=== PATIENT | female | born 1935 | race American Indian/Alaskan Native ===

== ENCOUNTER 2016-08-02 11:08 | Day surgery (SDC) | payer MEDICARE ==
[~2016-08-02 11:08] MED LIST: IOPIDINE OD ONE; MYDRIACYL 1% OD ONE; NEOFRIN OD ONE
[2016-08-02] MEDS ORDERED: IOPIDINE OD ONE (12:00)
[2016-08-02] MEDS ORDERED: NEOFRIN OD ONE (12:00)
[2016-08-02] MEDS ORDERED: MYDRIACYL 1% OD ONE (12:00)
[2016-08-02 12:44] VITALS: BP 120/70
== END 2016-08-02 11:09 | disposition home or self-care (01) ==
LOC: OR 11:08
PROVIDERS: ATTEND Specialist
DX: E11.36 Type 2 diabetes mellitus with diabetic cataract (principal); H40.9 Unspecified glaucoma; I11.0 Hypertensive heart disease with heart failure; I50.9 Heart failure, unspecified; E78.00 Pure hypercholesterolemia, unspecified; Z87.891 Personal history of nicotine dependence; Z95.1 Presence of aortocoronary bypass graft
CPT/HCPCS: 82962

== ENCOUNTER 2017-11-14 09:11 | Outpatient (CLI) | payer MEDICARE ==
--- NOTE | 2017-11-14 09:38 | XRay Report ---
XRAY CHEST TWO VIEWS: 11/14/17 09:11:00 CLINICAL: Cough. COMPARISON: None FINDINGS: Mild cardiomegaly with redistribution of pulmonary blood flow to the upper lobes. Mild bibasal lung opacities, likely atelectasis. No airspace disease or pleural effusion. Median sternotomy wires. IMPRESSION: Mild CHF but no pulmonary edema.Mild bibasal atelectasis.
== END 2017-11-14 09:12 | disposition home or self-care (01) ==
LOC: SPVIMAG 09:11
PROVIDERS: ATTEND Internal Medicine
DX: I11.0 Hypertensive heart disease with heart failure (principal); I50.9 Heart failure, unspecified; J98.11 Atelectasis; E78.00 Pure hypercholesterolemia, unspecified; Z87.891 Personal history of nicotine dependence
CPT/HCPCS: 71046